=== PATIENT | female | born 1975 | race Caucasian/White ===

== ENCOUNTER → 2016-11-01 | Outpatient (CLI) | payer OTHER ==
--- NOTE | 2016-11-01 08:34 | MA ---
Screening Digital Mammogram With Tomosynthesis Clinical Indications: Routine screening. Technique: Standard digital cephalocaudal and tomosynthesis mediolateral oblique projections are obt ained. The digital images are processed by the [employer] computer aided detection system. Comparison: None Breast density: C; The breast tissue is heterogeneously dense, which could obscure detection of small masses. Findings: CAD was reviewed. There are possible mass lesions in each breast, 19 mm in the upper left b reast at approximately the 11:00 radial, upper periareolar right breast 10 mm at approximately the 10 :00 radial , and lower outer left breast at approximately the 8:00 radial . There is also a small clu ster of possibly intraductal calcifications behind the upper inner right areola. Impression: BI-RADS 0: Needs additional imaging evaluation, right breast. . Recommendation: Magnification views over microcalcifications in the right breast. Ultrasound to eval uate possible masses in both breasts. BI-RADS 0. Additional imaging required bilaterally. [facility] will send a result letter to the patient. Negative mammography should not preclude additional workup of a clinically suspicious finding. The patient's information is entered into a reminder system with a target due date for her next mammo gram.
== END ==
LOC: FIMAGING 07:33
DX: Z12.31 Encounter for screening mammogram for malignant neoplasm of breast (principal)
CPT/HCPCS: G0202

== ENCOUNTER → 2016-11-14 | Outpatient (CLI) | payer OTHER ==
--- NOTE | 2016-11-14 14:28 | MA ---
Diagnostic Digital Mammogram Right Breast With iCAD Analysis Reason for examination: Evaluate microcalcifications noted in the upper anterior central right breast on the baseline screening study November 01, 2016. Technique: Craniocaudal and true lateral magnification views are obtained. Also, a true lateral is pe rformed. The examination is processed by the iCAD computer-aided detection system. Findings: Diagnostic study confirms somewhat amorphic microcalcifications that probably represent an evolving benign macrocalcification. No associated soft tissue mass is seen. Impression: Probably benign right breast microcalcifications, BI-RADS 3. Recommendation: 6 month unilateral right mammographic follow-up. Note: The patient is scheduled for bilateral breast ultrasound to evaluate possible nodular regions n oted on the baseline screening tomographic study. A verbal report was given to the patient. [facility] with send a result letter.
--- NOTE | 2016-11-14 15:44 | US ---
Bilateral Breast Ultrasound History: Evaluate bilateral nodularity noted on the baseline screening tomographic study of November 01, 2016. Technique: Longitudinal and transverse images were obtained utilizing a 15-MHz transducer. Color Do ppler evaluation is employed for assessment of vascularity. Findings: Sonographic interrogation of the breasts bilaterally demonstrate nearly innumerable cysts. The largest on the left at the 1 o'clock position 3 cm from the nipple would account for the mammog raphic finding. At the 10 o'clock position of the right breast 3 cm from the nipple, several large c ysts are seen side by side. On the left side at the 11:30 position 3 cm from the nipple, there is a probably benign cyst, with internal debris. Similarly, on the right at the 9 o'clock position 3 cm f rom the nipple, there is a cyst containing internal debris.. Impression: Probably benign sonographic findings, BI-RADS 3. Recommendation: Six-month follow up of the two cysts, detailed above, one in each breast.. Findings and follow-up recommendations were reviewed with the patient in detail. The sonographic fol low up can be correlated with the six-month right breast mammographic follow up. [facility] will send a result letter to the patient.
== END ==
LOC: FIMAGING 13:33
PROVIDERS: ATTEND Family Medicine
DX: N63 Unspecified lump in breast (principal)
CPT/HCPCS: G0206

== ENCOUNTER → 2017-05-02 | Outpatient (CLI) | payer OTHER | LOC: FIMAGING 14:08 | PROVIDERS: ATTEND Family Medicine | DX: N60.01 Solitary cyst of right breast (principal); N60.02 Solitary cyst of left breast | CPT/HCPCS: G0206 ==

== ENCOUNTER → 2017-10-18 | Outpatient (CLI) | payer OTHER | LOC: FIMAGING 12:47 | PROVIDERS: ATTEND Family Medicine | DX: R93.8 Abnormal findings on diagnostic imaging of other specified body structures (principal) ==

== ENCOUNTER → 2018-07-29 | Outpatient (CLI) | payer OTHER | LOC: FIMAGING 16:11 | PROVIDERS: ATTEND Family Medicine | DX: R19.07 Generalized intra-abdominal and pelvic swelling, mass and lump (principal); N83.01 Follicular cyst of right ovary ==

== ENCOUNTER 2018-08-05 08:23 | Emergency (ER) | payer OTHER ==
[2018-08-05] MEDS ORDERED: NS 1,000 ML IV ONE (08:38)
[2018-08-05] MEDS ORDERED: KETOROLAC 30 MG/1 ML SDV IVP ONE (08:38)
[2018-08-05] MEDS ORDERED: ONDANSETRON 4 MG/2 ML VIAL IVP ONE (08:38)
--- NOTE | 2018-08-05 08:43 | EDPHY ---
H & P Stated Complaint: pelvic pain us with lesion on uterus last sunday Time Seen by Provider: 08/05/18 08:33 HPI/ROS: CHIEF COMPLAINT: Chronic abdominal pain HISTORY OF PRESENT ILLNESS: Patient is a 42-year-old female with a history of IBS who is been complaining of chronic abdominal pain, nausea vomiting and diarrhea since May. She has been seen by gastrology Dr. Tello who diagnosed IBS and prescribed antibiotics. Initially she felt a little bit better with this but then her symptoms returned. She has also seen her OBGYN and her primary care doctor. Last week her primary care doctor ordered a ultrasound which revealed a lesion on her uterus consistent with a hematoma but additional testing was recommended to rule out tumor. The patient's primary Dr. Coleman has ordered an MRI but is waiting for pre approval. The patient was frustrated with this process and decided to come to the ER today to get the MRI. She has not had a fever. She has not had any vomiting or diarrhea recently. She does have continued pain and nausea. No chest pain or shortness of breath. No unusual discharge. No urinary symptoms. Severity: Moderate Modifying factors: None REVIEW OF SYSTEMS: Constitutional: denies: chills, fever, recent illness, recent injury EENTM: denies: blurred vision, double vision, nose congestion Respiratory: denies: cough, shortness of breath Cardiac: denies: chest pain, irregular heart rate, lightheadedness, palpitations Gastrointestinal/Abdominal: denies: abdominal pain, diarrhea, nausea, vomiting, blood streaked stools Genitourinary: denies: dysuria, frequency, hematuria, pain Musculoskeletal: denies: joint pain, muscle pain Skin: denies: lesions, rash, jaundice, bruising Neurological: denies: headache, numbness, paresthesia, tingling, dizziness, weakness Hematologic/Lymphatic: denies: blood clots, easy bleeding, easy bruising Immunologic/allergic: denies: HIV/AIDS, transplant 10 systems reviewed and negative except as noted EXAM: GENERAL: Uncomfortable, well-nourished and in no acute distress. HEAD: Atraumatic, normocephalic. EYES: Pupils equal round and reactive to light, extraocular movements intact, sclera anicteric, conjunctiva are normal. ENT: TMs normal, nares patent, oropharynx clear without exudates. Moist mucous membranes. NECK: Normal range of motion, supple without lymphadenopathy or JVD. LUNGS: Breath sounds clear to auscultation bilaterally and equal. No wheezes rales or rhonchi. HEART: Regular rate and rhythm without murmurs, rubs or gallops. ABDOMEN: Soft, nontender, normoactive bowel sounds. No guarding, no rebound. No masses appreciated. BACK: No CVA tenderness, no spinal tenderness, step-offs or deformities EXTREMITIES: Normal range of motion, no pitting or edema. No clubbing or cyanosis. NEUROLOGICAL: Cranial nerves II through XII grossly intact. Normal speech, normal gait. 5/5 strength, normal movement in all extremities, normal sensation , normal reflexes PSYCH: Normal mood, normal affect. SKIN: Warm, dry, normal turgor, no visible rashes or lesions. Source: Patient Exam Limitations: No limitations - Personal History LMP (Females 10-55): Over 28 Days Ago Current Tetanus Diphtheria and Acellular Pertussis (TDAP): Yes - Medical/Surgical History Hx Asthma: No Hx Chronic Respiratory Disease: No Hx Diabetes: No Hx Cardiac Disease: No Hx Renal Disease: No Hx Cirrhosis: No Hx Alcoholism: No Hx HIV/AIDS: No Hx Splenectomy or Spleen Trauma: No Other PMH: endometrial ablation - Family History Significant Family History: No pertinent family hx - Social History Smoking Status: Never smoked Alcohol Use: Sober Drug Use: None Constitutional: Initial Vital Signs Temperature (C) 36.6 C 08/05/18 08:26 Heart Rate 83 08/05/18 08:26 Respiratory Rate 18 08/05/18 08:26 Blood Pressure 102/80 08/05/18 08:26 O2 Sat (%) 96 08/05/18 08:26 O2 Delivery Mode Room Air Allergies/Adverse Reactions: codeine [Codeine] Allergy (Mild, Verified 08/05/18 08:24) HEADACHES Penicillins Allergy (Mild, Verified 08/05/18 08:24) Rash ARTIFICIAL FLAVORS Allergy (Mild, Uncoded 12/20/09 17:16) Vomiting CARROTS Allergy (Mild, Uncoded 12/20/09 17:17) Vomiting CHOCOLATE Allergy (Mild, Uncoded 12/20/09 17:17) Vomiting HAYFEVER Allergy (Mild, Uncoded 12/20/09 17:16) RUNNY NOSE/ITCHY EYES Home Medications: Medication Instructions Recorded Dicyclomine 08/05/18 Plaquenil 200 mg (*) 08/05/18 Medical Decision Making ED Course/Re-evaluation: 9:30 a.m. the patient is feeling much better. Her partner is on the phone trying to schedule an MRI. I spoke with Dr. Coleman through her nurse. They do not think that it needs to be ordered emergently. I am in agreement with this. The patient has had the symptoms for several months. Her lab work is reassuring. I will continue to treat her pain and encourage outpatient follow- up. We discussed indications for returning. The patient is requesting diazepam because this typically seems to help with her symptoms. Differential Diagnosis: Partial list of the Differential diagnosis considered include but were not limited to; chronic abdominal pain, irritable bowel endometriosis, uterine hematoma, fibroid and although unlikely based on the history and physical exam, I also considered ovarian cyst, ovarian torsion, urinary tract infection, kidney stone, appendicitis. I discussed these differential diagnoses and the plan with the patient as well as the usual and expected course. The patient understands that the diagnosis is provisional and that in medicine we are not always correct and that further workup is often warranted. Usual and customary warnings were given. All of the patient's questions were answered. The patient was instructed to return to the emergency department should the symptoms at all worsen or return, otherwise to followup with the physician as we discussed. - Data Points Laboratory Results: Laboratory Results 08/05/18 08:45 08/05/18 08:45 08/05/18 08/05/18 08/05/18 08:45 08:45 08:45 WBC 4.88 10^3/uL 10^3/uL (3.80-9.50) RBC 4.88 10^6/uL 10^6/uL (4.18-5.33) Hgb 13.9 g/dL g/dL (12.6-16.3) Hct 41.6 % % (38.0-47.0) MCV 85.2 fL fL (81.5-99.8) MCH 28.5 pg pg (27.9-34.1) MCHC 33.4 g/dL g/dL (32.4-36.7) RDW 12.0 % % (11.5-15.2) Plt Count 208 10^3/uL 10^3/uL (150-400) MPV 10.3 fL fL (8.7-11.7) Neut % (Auto) 65.6 % % (39.3-74.2) Lymph % (Auto) 20.5 % % (15.0-45.0) [place] % (Auto) 12.1 % % (4.5-13.0) Eos % (Auto) 0.8 % % (0.6-7.6) Baso % (Auto) 0.6 % % (0.3-1.7) Nucleat RBC Rel Count 0.0 % % (0.0-0.2) Absolute Neuts (auto) 3.20 10^3/uL 10^3/uL (1.70-6.50) Absolute Lymphs (auto) 1.00 10^3/uL 10^3/uL (1.00-3.00) Absolute Monos (auto) 0.59 10^3/uL 10^3/uL (0.30-0.80) Absolute Eos (auto) 0.04 10^3/uL 10^3/uL (0.03-0.40) Absolute Basos (auto) 0.03 10^3/uL 10^3/uL (0.02-0.10) Absolute Nucleated RBC 0.00 10^3/uL 10^3/uL (0-0.01) Immature Gran % 0.4 % % (0.0-1.1) Immature Gran # 0.02 10^3/uL 10^3/uL (0.00-0.10) Sodium 139 mEq/L mEq/L (135-145) Potassium 3.8 mEq/L mEq/L (3.3-5.0) Chloride 105 mEq/L mEq/L (97-110) Carbon Dioxide 24 mEq/l mEq/l (22-31) Anion Gap 10 mEq/L mEq/L (6-14) BUN 12 mg/dL mg/dL (7-23) Creatinine 0.8 mg/dL mg/dL (0.6-1.0) Estimated GFR > 60 Glucose 78 mg/dL mg/dL (70-100) Calcium 9.6 mg/dL mg/dL (8.5-10.4) Total Bilirubin 0.7 mg/dL mg/dL (0.1-1.4) Conjugated Bilirubin 0.2 mg/dL mg/dL (0.0-0.5) Unconjugated Bilirubin 0.5 mg/dL mg/dL (0.0-1.1) AST 25 IU/L IU/L (14-46) ALT 21 IU/L IU/L (9-52) Alkaline Phosphatase 45 IU/L IU/L (38-126) Total Protein 7.1 g/dL g/dL (6.3-8.2) Albumin 4.0 g/dL g/dL (3.5-5.0) Lipase 73 IU/L IU/L (23-300) Beta HCG, Qual NEGATIVE Medications Given: Discontinued Medications Diazepam (Valium 5 Mg Prepack#4) 1 btl TAKEHOME EDNOW ONE Stop: 08/05/18 09:34 Last Admin: 08/05/18 09:41 Dose: 1 btl Sodium Chloride (Ns) 1,000 mls @ 0 mls/hr IV EDNOW ONE; Wide Open PRN Reason: Protocol Stop: 08/05/18 08:39 Last Admin: 08/05/18 08:49 Dose: 1,000 mls Ketorolac Tromethamine (Toradol) 15 mg IVP EDNOW ONE Stop: 08/05/18 08:39 Last Admin: 08/05/18 08:50 Dose: 15 mg Ondansetron HCl (Zofran) 4 mg IVP EDNOW ONE Stop: 08/05/18 08:39 Last Admin: 08/05/18 08:50 Dose: 4 mg Departure - Departure Disposition: Home, Routine, Self-Care Clinical Impression: Uterine mass Abdominal pain Qualifiers: Abdominal location: generalized Qualified Code(s): R10.84 - Generalized abdominal pain Condition: Fair Instructions: Diazepam (By mouth), Chronic Abdominal Pain (ED) Referrals: Guerita Coleman MD [Primary Care Provider] - 2-3 days, call for appt.
[2018-08-05 08:56] LABS: PLATELET COUNT 208 10^3/uL (150-400)
[2018-08-05] MEDS ORDERED: DIAZEPAM 5 MG PREPACK#4 BTL TAKEHOME ONE (09:33)
[2018-08-05 09:44] VITALS: BP 110/80
== END 2018-08-05 09:48 | disposition home or self-care (01) ==
DX: R10.84 Generalized abdominal pain (principal); K58.9 Irritable bowel syndrome, unspecified; E86.9 Volume depletion, unspecified; Z79.2 Long term (current) use of antibiotics
CPT/HCPCS: 96374; J1885; J2405

== ENCOUNTER → 2018-08-07 | Outpatient (CLI) | payer OTHER ==
[~2018-08-07] MED LIST: GADOBUTROL 10 ML VIAL IVP ONE
== END ==
LOC: FIMAGING 13:37
PROVIDERS: ATTEND Family Medicine
DX: N94.89 Other specified conditions associated with female genital organs and menstrual cycle (principal); R93.89 Abnormal findings on diagnostic imaging of other specified body structures
CPT/HCPCS: A9585

== ENCOUNTER → 2018-11-05 | Outpatient (CLI) | payer OTHER | LOC: FIMAGING 08:59 | PROVIDERS: ATTEND Family Medicine | DX: N63.20 Unspecified lump in the left breast, unspecified quadrant (principal) ==